=== PATIENT | female | born 1960 | race Hispanic/Latino ===

== ENCOUNTER → 2017-08-22 08:01 | Outpatient (CLI) | payer OTHER, SELFPAY ==
--- NOTE | 2017-08-22 | DI.CT.S_ITS ---
PROCEDURE: CT CHEST ABD PEL W CON INDICATIONS: Abnormal CBC and weight loss TECHNIQUE: After the administration of oral and intravenous contrast, 5 mm thick sections acquired from the lung apices to the symphysis. 5 mm coronal and sagittal reformats were performed, with additional 7 mm coronal MIP reformats through the lungs. For radiation dose reduction, the following was used: automated exposure control, adjustment of mA and/or kV according to patient size. Patient had allergic reaction to iodine contrast. See life support technician note. COMPARISON: Located Within [facility], [place], ABDOMEN COMPLETE, 01/22/2015, 11:03. FINDINGS: Image quality: Excellent. CHEST: Lungs and pleura: No acute airspace opacities. There is a pleural-based 4 mm nodule in the left lower lobe adjacent to the fissure, series 3/image 30. No pleural effusions or pneumothorax. Central and peripheral airways appear patent and normal in caliber. Mediastinum: Heart size is normal. No pericardial effusion. No mediastinal or hilar adenopathy by size criteria. Thoracic aorta and central pulmonary arteries are normal in size. Esophagus is normal in caliber. No hiatal hernia. Chest wall: No axillary or supraclavicular adenopathy by size criteria. Thyroid gland appears normal. ABDOMEN: Solid organs: Liver measures 18.9 cm with diffusely decreased attenuation, and no focal mass lesions. Gallbladder contains gallstones by previous ultrasound. Biliary system is non dilated. Pancreas enhances normally. Spleen is normal in size and enhancement. No adrenal nodules. Kidneys demonstrate normal size and enhancement, without hydronephrosis. Peritoneum and bowel: Bowel loops demonstrate normal wall thickness and caliber. The appendix is not seen. No evidence of appendicitis. No free fluid or air. Nodes and vessels: No retroperitoneal or mesenteric adenopathy by size criteria. Aorta and inferior vena cava are normal in size. Miscellaneous: No ventral hernias. PELVIS: Genitourinary: Bladder wall thickness is normal. Normal uterus and adnexa. Miscellaneous: No inguinal hernias or adenopathy. Bones: No suspicious bony lesions. No vertebral body compression fractures. IMPRESSION: 1. No acute findings in the chest abdomen or pelvis to explain weight loss. 2. Small 4 mm pleural-based nodule in the left lower lobe is indeterminant. A followup noncontrast CT chest in 6-12 months is suggested. 3. Cholelithiasis, best identified on prior abdomen ultrasound. No abnormal wall thickening to suggest cholecystitis. 4. Mild hepatomegaly and moderate steatosis, correlation with liver enzymes suggested. Dictated by: Titus Giles M.D. on 08/22/2017 at 10:26 Approved by: Titus Giles M.D. on 08/22/2017 at 10:40
== END ==
PROVIDERS: Visit Provider Internal Medicine Hematology & Oncology
DX: R63.4 Abnormal weight loss (principal); R91.1 Solitary pulmonary nodule; K80.20 Calculus of gallbladder without cholecystitis without obstruction; R16.0 Hepatomegaly, not elsewhere classified
CPT/HCPCS: 71260; 74177

== ENCOUNTER 2017-08-22 09:35 | Emergency (ER) | payer OTHER, SELFPAY ==
[2017-08-22 09:35] VITALS: BP 179/96; PULSE 48; RESP 18; TEMP 36.2; O2SAT 100; BMI 18.7
--- NOTE | 2017-08-22 09:46 | ED.ALLEREA ---
HPI - Allergic Reaction General Chief complaint: Allergic Reaction Stated complaint: Allergic Reaction Time Seen by Provider: 08/22/17 09:42 History of Present Illness HPI narrative: 57F sent from outpatient CT scan to ED for possible allergic reaction. Patient has no pmhx, getting CT abd/pelvis to investigate persistent weight loss as outpatient when she felt a sensation of globus and sinus pressure after injection of IV contrast approx 5 minutes prior. Less than 10 minutes since injection has passed, and patient states her symptoms are gone. Denies any SOB, nausea, abdominal pain, or chest pain. Has had a similar sensation many years ago with administration of penicillin. Patient recieved 50mg IV benadryl prior to transport from CT dept. Related Data Home Medications Medication Instructions Recorded Confirmed conjugated estrogens [Premarin] 1 applic VAGINAL BID 08/22/17 08/22/17 Allergies Allergy/AdvReac Type Severity Reaction Status Date / Time Iodinated Contrast- Oral and Allergy Severe Difficulty Verified 08/22/17 10:09 IV Dye Breathing Penicillins [PENICILLINS] Allergy Severe Hives Verified 08/22/17 09:48 Sulfa (Sulfonamide Allergy Verified 08/22/17 09:49 Antibiotics) Review of Systems Constitutional Denies chills, Denies fever(s), Denies lethargy and Denies weakness ENT Comments: globus sensation, now resolved. Cardiovascular Denies chest pain, Denies irregular heart rhythm, Denies lightheadedness, Denies palpitations, Denies dyspnea, Denies dyspnea on exertion and Denies orthopnea Respiratory Denies cough, Denies dyspnea, Denies dyspnea on exertion and Denies wheezing Gastrointestinal Gastrointestinal: Denies abdominal pain, Denies change in bowel habits, Denies diarrhea, Denies nausea and Denies vomiting Genitourinary Denies hematuria, Denies flank pain, Denies urinary incontinence and Denies urinary urgency Integumentary/Breasts Denies pruritus, Denies erythema, Denies rash and Denies wounds Neurologic Denies weakness Endocrine Denies palpitations Allergic/Immunologic Denies wheezing PFSH Social History Smoking Status: Never smoker Exam Initial Vital Signs Initial Vital Signs: Vital Signs Temperature 97.1 F L 08/22/17 09:35 Pulse Rate 48 L 08/22/17 09:35 Respiratory Rate 18 08/22/17 09:35 Blood Pressure 179/96 H 08/22/17 09:35 Pulse Oximetry 100 08/22/17 09:35 Const General: cooperative, healthy appearing and other (thin, but not cachectic) Orientation: alert, awake, oriented x3 and not confused [facility] Head: normocephalic and atraumatic Ears: external ears normal and TM's normal bilaterally Nose: external nose normal and No nasal discharge Face and sinus: sinuses nontender, face symmetric, no sinus tenderness and No dry mucous membranes Mouth: oral mucosae normal and moist mucous membranes Teeth and gingiva: dentition normal Throat: tonsils normal and uvula midline Neck Neck: normal visual inspection, trachea midline, No lymphadenopathy, No midline deformity and No JVD Lymphatic: No lymphedema Resp Effort & Inspection: normal respiratory effort, able to speak in complete sentences, no respiratory distress and no use of accessory muscles Auscultation: clear to auscultation bilaterally, no rales, no rhonchi and no wheezes Cardio Rate: regular rate Rhythm: regular rhythm Heart Sounds: no click, no gallops, no murmurs and no rubs Pulses: normal peripheral pulses GI Inspection: non-distended Palpation: soft, no hepatosplenomegaly, No guarding, No pulsatile mass and No tender Auscultation: normal bowel sounds Skin General: no rashes or lesions noted, No jaundice and No petechiae Neuro General: alert, oriented x3, gait normal and no focal motor deficits Speech: speech normal Extrem General: full ROM, no clubbing, cyanosis or edema, no pedal edema and no calf tenderness Course Orders Ordered: Discontinued Medications Diphenhydramine HCl (Benadryl) 50 mg IV NOW ONE Stop: 08/22/17 10:08 Last Admin: 08/22/17 10:09 Dose: 50 mg Vital Signs - 8 hr 08/22/17 09:35 08/22/17 10:00 08/22/17 10:53 Temperature 97.1 F L Pulse Rate 48 L 50 L 46 L Respiratory Rate 18 16 13 Blood Pressure 179/96 H Blood Pressure [Left Arm] 159/69 H 122/74 H Pulse Oximetry 100 100 99 08/22/17 11:10 Temperature Pulse Rate 53 L Respiratory Rate 16 Blood Pressure Blood Pressure [Left Arm] 111/55 L Pulse Oximetry 100 MDM - Allergic Reaction MDM Narrative Medical decision making narrative: Patient with globus sensation after IV contrast administration which resolved in less than 5 minutes without medications. Was given benadryl empirically prior to ED arrival. Patient was asymptomatic in ED, with unconcerning vital signs. Unlikely to be true allergic reaction. Observed in ED [address] results discussed with patient. Patient is stable for discharge. Discharge Plan Departure Patient Disposition: Home, Self-Care Clinical Impression: Globus pharyngeus Instructions: DI for General Allergic Reactions Activity Restrictions/Additional Instructions: Maintain adequate hydration. Please follow up with primary care provider. Prescriptions: No Action conjugated estrogens [Premarin] 0.625 mg/gram Cream 1 applic VAGINAL BID RF: 0
[2017-08-22 10:00] VITALS: BP 159/69; PULSE 50; RESP 16; O2SAT 100
[2017-08-22] MEDS: diphenhydrAMINE 50 MG/ML VIAL IV (10:09)
--- NOTE | 2017-08-22 10:10 | PC.NURSE ---
pt had just finished CT scan and had sx's of sneezing, coughing and throat feeling tight, asked to assist pt and I gave her 50mg of Benadryl with immediate results of reversal. pt reported her throat felt better. Pt was verbal the entire encounter and I was able to pass report off to Ann Marie RN in the ED. pt stable and reports she drove to [facility] by herself.
[2017-08-22 10:53] VITALS: BP 122/74; PULSE 46; RESP 13; O2SAT 99
[2017-08-22 11:10] VITALS: BP 111/55; PULSE 53; RESP 16; O2SAT 100
== END 2017-08-22 12:02 | disposition home or self-care (01) ==
LOC: ED 11:37
PROVIDERS: Emergency Provider Student in an Organized Health Care Education/Training Program
DX: F45.8 Other somatoform disorders (principal)
CPT/HCPCS: 96374; 99283; 99284; J1200

== ENCOUNTER → 2017-08-26 13:24 | Outpatient (CLI) | payer OTHER, SELFPAY ==
--- NOTE | 2017-08-27 14:30 | DI.NM.S_ITS ---
DATE OF SERVICE: 08/26/2017 PROCEDURE PERFORMED: Exercise treadmill stress and rest Sestamibi myocardial perfusion imaging with gating. INDICATIONS: The patient is a 57-year-old female with falls and lightheadedness with palpations. REFERRING PHYSICIAN: EDWARD Wood EXERCISE TREADMILL TESTING: The patient was able to exercise for 9 minutes 43 seconds on a standard Raghav protocol, suggesting very good exercise capacity with an ENID of negative 30%. She had a normal heart rate and blood pressure response to exercise, achieving a maximum heart rate of 141 BPM (88% of her predicted maximum). She had no chest discomfort. Her resting ECG appears normal, and there are no ST segment shifts to suggest ischemia. There were no arrhythmias. At 8 minutes 47 seconds of exercise, at a heart rate of 119 BPM, 25 mCi of technetium-99 Myoview was injected and the patient was imaged 15 minutes later, using a gated SPECT acquisition protocol. The patient returned the following day and was reinjected with an additional 26.6 mCi of technetium-99 Myoview and was imaged 35 minutes later, again using a gated SPECT acquisition protocol. FINDINGS: 1. Raw data: There is fair myocardial tracer uptake, although there is a fairly prominent area of tracer uptake in the left colon adjacent to the inferior wall that affects interpretation in this area. This is more notable on the rest images than the stress images. The lung-heart ratio is normal at 0.30. The TID ratio is normal at 1.02. 2. Quantitated gated SPECT: Post stress ejection fraction is estimated at 80% without any focal wall motion abnormality. Resting ejection fraction is 73% with an end-diastolic volume of 71 mL. 3. Myocardial perfusion imaging: Comparison is challenging between the stress and rest images because of the subdiaphragmatic tracer activity at the splenic flexure. When one attempts to normal for this hot spot there appears to be fairly normal myocardial perfusion imaging in the supine position. The prone images are of better image quality and also show a normal perfusion pattern. The resting images are more affected by the subdiaphragmatic tracer activity. Again, with attempts at normalization to other areas, there does not appear to be any significant improvement in the resting images. Given the normal perfusion pattern on the prone images, this is most likely a normal perfusion study. CONCLUSION: 1. Probable normal myocardial perfusion study, although somewhat technically limited because of a subdiaphragmatic tracer hot spot in the splenic flexure that affects the interpretation in the inferolateral segment. There can be increased tracer uptake in hypermetabolic tissue such as malignancy, and clinical correlation is recommended. 2. No compelling evidence for myocardial ischemia or previous myocardial infarction. 3. Normal LV systolic function without focal abnormality. 4. Very good exercise capacity without angina or ECG evidence of ischemia which would suggest a low risk study. Azeem Shelby - RS/bruno/kv doc#: [id number]/job#: [id number] dd: 08/27/2017 12:42:00 dt: 08/27/2017 14:21:00 DICTATING /COPIES TO: Lalo Hill MD ; EDWARD Wood COPIES MNE: TIFFANY WANG
== END ==
PROVIDERS: PCP Nurse Practitioner Family; Visit Provider Nurse Practitioner Family
DX: R00.2 Palpitations (principal); R42 Dizziness and giddiness
CPT/HCPCS: 78452; 93016; 93017; 93018; A9502

== ENCOUNTER → 2017-09-04 09:17 | Outpatient (CLI) | payer OTHER, SELFPAY ==
--- NOTE | 2017-09-04 | DI.MG.S_ITS ---
BILATERAL DIGITAL SCREENING MAMMOGRAM 3D/2D WITH CAD: 09/04/2017 CLINICAL: Routine screening. Comparison is made to exams dated: 12/07/2008 mammogram and 11/30/2008 mammogram - [facility]. There are scattered fibroglandular elements in both breasts. Current study was also evaluated with a Computer Aided Detection (CAD) system. No significant masses, calcifications, or other findings are seen in either breast. IMPRESSION: NEGATIVE There is no mammographic evidence of malignancy. A 1 year screening mammogram is recommended. This exam was interpreted at Station ID: [id number]. NOTE: For mammograms, a report in lay terms will be sent to the patient. Approximately 15% of breast malignancies will not be visualized mammographically. In the management of a palpable breast mass, a negative mammogram must not discourage biopsy of a clinically suspicious lesion. Electronically Signed By: Zander gomes/jose alejandro:09/05/2017 11:25:26 Entry: - 09/05/2017 11:25:26 letter sent: Normal Exam ACR BI-RADS Category 1: Negative [id number]
== END ==
PROVIDERS: PCP Nurse Practitioner Family; Visit Provider Nurse Practitioner Family
DX: Z12.31 Encounter for screening mammogram for malignant neoplasm of breast (principal); M81.0 Age-related osteoporosis without current pathological fracture; Z78.0 Asymptomatic menopausal state
CPT/HCPCS: 77063; 77067; 77080

== ENCOUNTER → 2018-01-08 08:38 | Outpatient (CLI) | payer OTHER, SELFPAY ==
--- NOTE | 2018-01-08 12:57 | DIET.PN ---
Met for an initial nutrition consultation. Pt reports she had gallstones in 2014; opted not to have surgery as it was not infected and changed her diet, eliminating all processed foods, white food, sugar and alcohol. Has not had any attacks since and lost approx 70# with change in diet. Is now underweight and unable to regain. Feels she has lost muscle. Wants to regain muscle; eat to avoid chronic disease, incuding dementia which her mom has. Reports osteoporosis and some arthritis pain in hands. Is a masseuse. Usual diet: 2 full meals daily with snacks between. For snacks typically eats Turkish yogurt and nuts. Main meals include meats, poultry, tofu, legumes for protein, fruit and vegs, whole grains though still avoids bread as it seems to upset stomach and results in diarrhea. Wesco tortillas, quinoa, brown rice are among chosen grains. Exercise: Swims daily. Recently started adding light weight in the pool for upper arms. Doesn't really know how much weight she's using as they are faded and numbers can't be seen. Dx: underweight, unintentional weight loss HT: 60 Weight Hx: 2014 150# Current wt: 96# BMI: 18.7 GI: Has had GI work-up and GI system appears healthy per pt. Has daily BM that is described as very soft but not watery; gets more loose with eating certain foods - bread, refined foods. Feels she has intolerance to dairy . Has cramping, diarrhea w/drinking milk, but can tolerate yogurt. Loves hard cheese but gets diarrhea w/this food. Assessment: Suspect lactose intolerance vs milk protein. Problems with cheese is likely the fat content vs dairy. May also have sensitivity to gluten per reported symptoms. Appears to have some fat intolerance. Intervention: Provided education on anti-inflammatory diet; low fat/healthful fats. Discussed supplements. Plan / Goal: Avoid lactose, high fat foods. Choose healthful fats and fats high in MCTs for easier absorption and added cals for wt increase Choose more high calcium foods (gave osteoporosis diet info) Suggest supplemental Vit D-2000IU, Fish oil omega 3's Continue exercise and adding more resistance training to help build muscle and bone. follow exercise w/snack- pro/carb combo F/U in 1mo to check progress.
== END ==
PROVIDERS: PCP Nurse Practitioner Family; Visit Provider Nurse Practitioner Family
DX: R63.6 Underweight (principal); Z68.1 Body mass index [BMI] 19.9 or less, adult
CPT/HCPCS: 97802

== ENCOUNTER 2018-05-03 11:05 | Emergency (ER) | payer OTHER, SELFPAY ==
[2018-05-03 11:18] VITALS: BP 180/85; PULSE 77; RESP 18; O2SAT 99; BMI 20.2
--- NOTE | 2018-05-03 12:09 | PC.NURSE ---
Patient noticed pain on her face on Friday, awoke on Friday with a rash on the right forehead and around the eye. Went to walk-in clinic and was diagnosed with shingles and put on antiviral therapy at this time. Her pain has not been well-managed with hydrocodone-acetaminophon. She states she has a headache and was nauseated this morning.
--- NOTE | 2018-05-03 12:23 | ED_ITS ---
HPI - Eye Problem <EDWARD Huynh - Last Filed: 05/03/18 21:28> General Chief complaint: Eye Problems Stated complaint: SENT FROM [facility] Time Seen by Provider: 05/03/18 12:23 Source: patient Mode of arrival: ambulatory Limitations: no limitations History of Present Illness HPI Narrative: 57-year-old healthy female that is a nonsmoker for complaint of pain into her right forehead area and to her right eye and face. Symptoms started approximately 3 days ago. She was seen in the walk-in clinic yesterday and was diagnosed with shingles she was put on antiviral valacyclovir and treated for pain with Weimar. She is awaiting ophthalmology appointment at this timeframe. She reports that she has had difficulty in controlling her pain. With Weimar. She denies any visual changes. Pain radiates into the right eyeball. She has redness and vesicles to the right forehead and right face area. MD chief complaint: eye pain Related Data Home Medications Medication Instructions Recorded Confirmed conjugated estrogens [Premarin] 1 applic VAGINAL BID 08/22/17 05/02/18 Previous Rx's Medication Instructions Recorded hydrocodone 5 mg-acetaminophen 325 1 tab PO Q4-6H PRN #7 tab 05/02/18 mg tablet valacyclovir 1 gram tablet 1,000 mg PO TID 7 Days #21 tab 05/02/18 erythromycin 5 mg/gram (0.5 %) eye 1 applictn OPHTHALMIC (EYE) BID 05/03/18 ointment #3.5 gram hydrocodone-acetaminophen 1 tab PO Q4-6H PRN #10 tab 05/03/18 Allergies Allergy/AdvReac Type Severity Reaction Status Date / Time Iodinated Contrast- Oral and Allergy Severe Difficulty Verified 05/03/18 11:18 IV Dye Breathing Penicillins [PENICILLINS] Allergy Severe Hives Verified 05/03/18 11:18 Sulfa (Sulfonamide Allergy Verified 05/03/18 11:18 Antibiotics) Review of Systems <EDWARD Huynh - Last Filed: 05/03/18 21:28> Constitutional Denies chills, Denies fever(s), Denies lethargy and Denies weakness Eyes Reports eye pain ENT Ears, Nose, Mouth, and Throat: Denies change in voice, Denies neck pain and Denies sore throat Comments: Rash to right forehead and face with swelling of right eyelid Cardiovascular Denies chest pain, Denies irregular heart rhythm, Denies lightheadedness, Denies palpitations, Denies dyspnea, Denies dyspnea on exertion and Denies orthopnea Respiratory Denies cough, Denies dyspnea, Denies dyspnea on exertion and Denies wheezing Gastrointestinal Gastrointestinal: Denies abdominal pain, Denies change in bowel habits, Denies diarrhea, Denies nausea and Denies vomiting Genitourinary Denies hematuria, Denies flank pain, Denies urinary incontinence and Denies urinary urgency Musculoskeletal Denies neck pain Integumentary/Breasts Denies pruritus, Denies erythema, Denies rash and Denies wounds Neurologic Denies confusion and Denies weakness Psychiatric Denies anxiety, Denies confusion, Denies depression, Denies homicidal ideation and Denies suicidal ideation Endocrine Denies palpitations Hematologic/Lymphatic Denies easy bruising Allergic/Immunologic Denies wheezing Exam <EDWARD Huynh - Last Filed: 05/03/18 21:28> Initial Vital Signs Initial Vital Signs: Vital Signs Pulse Rate 77 05/03/18 11:18 Respiratory Rate 18 05/03/18 11:18 Blood Pressure 180/85 H 05/03/18 11:18 Pulse Oximetry 99 05/03/18 11:18 Const General: cooperative and well developed Nutritional Appearance: well nourished Orientation: alert, awake, oriented x3 and not confused [facility] Head: scalp tenderness Face and sinus: other (Erythematous vesicular rash to right forehead scalp and right face) Mouth: oral mucosae normal and mucous membranes abnormal Throat: posterior oropharynx normal Eyes Eyelids: eyelid abnormality (Erythematous and swelling to right eyelids) Conjunctivae: conjunctival abnormality right conjunctival injection Cornea: corneas abnormal (Corneal lesion is appreciated to the lower right cornea on fluorescein exam) and fluorescein used Pupils: PERRL EOM: EOM intact bilaterally Resp Effort & Inspection: normal respiratory effort, able to speak in complete sentences, no respiratory distress and no use of accessory muscles Auscultation: clear to auscultation bilaterally, no rales, no rhonchi and no wheezes Cardio Rate: regular rate Rhythm: regular rhythm Heart Sounds: no click, no gallops, no murmurs and no rubs Pulses: normal peripheral pulses Neuro General: alert, oriented x3, gait normal and no focal motor deficits Speech: speech normal <Ji Silverio DO - Last Filed: 05/04/18 08:27> Initial Vital Signs Initial Vital Signs: Vital Signs Pulse Rate 77 05/03/18 11:18 Respiratory Rate 18 05/03/18 11:18 Blood Pressure 180/85 H 05/03/18 11:18 Pulse Oximetry 99 05/03/18 11:18 Course <EDWARD Huynh - Last Filed: 05/03/18 21:28> Orders Ordered: Discontinued Medications Hydrocodone Bitart/Acetaminophen (Weimar 5/325) 2 tab PO NOW ONE Stop: 05/03/18 13:22 Last Admin: 05/03/18 13:27 Dose: 2 tab Vital Signs - 8 hr 05/03/18 11:18 Pulse Rate 77 Respiratory Rate 18 Blood Pressure 180/85 H Pulse Oximetry 99 <Ji Silverio DO - Last Filed: 05/04/18 08:27> Orders Ordered: Discontinued Medications Hydrocodone Bitart/Acetaminophen (Weimar 5/325) 2 tab PO NOW ONE Stop: 05/03/18 13:22 Last Admin: 05/03/18 13:27 Dose: 2 tab Vital Signs - 8 hr 05/03/18 11:18 Pulse Rate 77 Respiratory Rate 18 Blood Pressure 180/85 H Pulse Oximetry 99 MDM - Eye Problem <EDWARD Huynh - Last Filed: 05/03/18 21:28> MDM Narrative Medical decision making narrative: Due to corneal involvement with shingles infection to r eye. Consult Ophthalmology at [facility] discussed case with Dr. Pettit ophthalmology who recommends patient be sent to [facility] emergency room for Ophthalmology evaluation today. She recommended that trifluridine drops be administered however we do not have the medication available in the pharmacy. Patient has a ride to [facility] emergency room. She is transferred to [facility] via POV. Discharge Plan Departure Patient Disposition: [facility] Clinical Impression: Herpes zoster dermatitis, Herpes zoster keratitis of right eye Discharge Date/Time: 05/03/18 13:43 Interventions: ED Discharge Assessment Last Done: 05/03/18 13:42 Activity Restrictions/Additional Instructions: Ophthalmology evaluation is needed today due to involvement of the right eye with shingles. After departure here go to [facility] emergency room for further evaluation by Ophthalmology. Care and instructions as per ophthalmology. Prescriptions: New hydrocodone-acetaminophen 5-325 mg tablet 1 tab PO Q4-6H PRN (Reason: pain) Qty: 10 RF: 0 No Action valacyclovir 1 gram tablet 1,000 mg PO TID 7 Days Qty: 21 RF: 0 hydrocodone-acetaminophen [Weimar] 5-325 mg tablet 1 tab PO Q4-6H PRN (Reason: pain) Qty: 7 RF: 0 erythromycin 5 mg/gram (0.5 %) ointment 1 applictn ophthalmic (eye) BID Qty: 3.5 RF: 3 conjugated estrogens [Premarin] 0.625 mg/gram Cream 1 applic VAGINAL BID RF: 0 Referrals: Lucina Duran ARNP [Primary Care Provider] - <Ji Silverio DO - Last Filed: 05/04/18 08:27> Cosign ED Attending Marijaature Attestation: I was available for consultation during this patient's emergency department encounter
[2018-05-03] MEDS: HYDROCODONE/ACET 5/325 TABLET 2 TAB PO (13:27)
== END 2018-05-03 13:43 | disposition short-term general hospital (02) ==
PROVIDERS: Emergency Provider Nurse Practitioner Family; PCP Nurse Practitioner Family
DX: B02.8 Zoster with other complications (principal); L30.8 Other specified dermatitis; B02.33 Zoster keratitis
CPT/HCPCS: 99283

== ENCOUNTER → 2020-10-03 14:05 | Outpatient (CLI) | payer OTHER, SELFPAY | PROVIDERS: PCP Internal Medicine; Referring Provider Internal Medicine; Visit Provider Internal Medicine | DX: M81.0 Age-related osteoporosis without current pathological fracture (principal); Z78.0 Asymptomatic menopausal state | CPT/HCPCS: 77080; 77081 ==

== ENCOUNTER → 2022-05-03 12:17 | Outpatient (CLI) | payer OTHER, SELFPAY ==
--- NOTE | 2022-05-03 12:19 | DI.MG.S_ITS ---
BILATERAL DIGITAL SCREENING MAMMOGRAM 3D/2D WITH CAD: 05/03/2022 CLINICAL: Routine screening. Family history of breast cancer. Comparison is made to exams dated: 09/04/2017 mammogram, 12/07/2008 mammogram, and 11/30/2008 mammogram - [facility]. There are scattered areas of fibroglandular density in both breasts (category b / 25%-50% glandular tissue). Current study was also evaluated with a Computer Aided Detection (CAD) system. There are benign vascular calcifications in both breasts. No significant masses, calcifications, or other findings are seen in either breast. There has been no significant interval change. IMPRESSION: BENIGN There is no mammographic evidence of malignancy. A 1 year screening mammogram is recommended. Based on the Tyrer Cuzick model (a risk assessment model) the patient's lifetime risk is 5.2% and her 10 year risk is 2.3%. According to the ACR, ACS, and NCCN guidelines, an annual breast MRI exam along with mammogram is recommended if the patient's lifetime risk is 20% or greater. This exam was interpreted at Station ID: [id number]. NOTE: For mammograms, a report in lay terms will be sent to the patient. Approximately 15% of breast malignancies will not be visualized mammographically. In the management of a palpable breast mass, a negative mammogram must not discourage biopsy of a clinically suspicious lesion. Electronically Signed By: Yanna salazar/jose alejandro:05/03/2022 16:10:24 letter sent: Normal Exam ACR BI-RADS Category 2: Benign Finding(s) [id number]
== END ==
PROVIDERS: PCP Internal Medicine; Referring Provider Internal Medicine; Visit Provider Internal Medicine
DX: Z12.31 Encounter for screening mammogram for malignant neoplasm of breast (principal); Z80.3 Family history of malignant neoplasm of breast; M81.0 Age-related osteoporosis without current pathological fracture; Z78.0 Asymptomatic menopausal state
CPT/HCPCS: 77063; 77067; 77080

== ENCOUNTER → 2024-02-04 12:38 | Outpatient (CLI) | payer OTHER, SELFPAY ==
--- NOTE | 2024-02-04 12:42 | DI.MRI.S_ITS ---
PROCEDURE: MR HEAD/BRAIN WO/W CON INDICATIONS: Right SIDED HEADACHE TECHNIQUE: Noncontrast axial T1 spin echo, axial T2 fast spin echo, sagittal and axial FLAIR, coronal T2 fast spin echo, axial gradient echo, axial diffusion and ADC through the brain. After the administration of contrast, axial and coronal and sagittal 3D VIBE or T1 spin echo with fat saturation through the brain. COMPARISON: None. FINDINGS: Image quality: Excellent. CSF Spaces: Basal cisterns are patent. No extra-axial fluid collections. Ventricles are normal in size and shape. Brain: No midline shift. No intracranial bleeds or masses. No abnormal intracranial enhancement. The brainstem appears normal. Diffusion-weighted images demonstrate no acute infarct. No chronic ischemic insults. Normal intravascular flow voids are present. Minimal scattered periventricular and subcortical white matter hyperintensities. Skull and face: Calvarial marrow is normal in signal. Orbits appear normal. Sinuses: Sinuses and mastoids appear clear. IMPRESSION: 1. No acute intracranial process. 2. Minimal scattered periventricular and subcortical white matter hyperintensities. These likely represent early changes of chronic microvascular ischemia. However, other etiology such as migraine sequela, vasculitis or potentially demyelinating disease under appropriate clinical laboratory circumstances should be considered. Dictated by: Darshana Bonilla M.D. on 02/06/2024 at 16:02 Approved by: Darshana Bonilla M.D. on 02/06/2024 at 16:04
== END ==
PROVIDERS: PCP Internal Medicine; Referring Provider Internal Medicine; Visit Provider Internal Medicine
DX: R51.9 Headache, unspecified (principal); G89.29 Other chronic pain
CPT/HCPCS: 70553; A9579

== ENCOUNTER → 2024-08-27 10:35 | Outpatient (CLI) | payer OTHER, SELFPAY ==
--- NOTE | 2024-08-27 10:38 | DI.MG.S_ITS ---
MM screening mammo BI: 08/27/2024. BI-RADS: 2 CLINICAL: 64-year old female for bilateral screening mammogram. Tyrer-Cuzick lifetime risk of 3.0%. No personal or first-degree family history of breast cancer. PRIOR EXAMS 05/03/2022, 09/04/2017. MAMMOGRAPHY TECHNIQUE: 2D and 3D (tomosynthesis) digital mammographic views obtained, with additional images as needed for full coverage. Current study was also evaluated with a Computer Aided Detection (CAD) system. DENSITY C. The breasts are heterogeneously dense, which may obscure small masses. MAMMOGRAPHY FINDINGS Bilateral: Typically-benign vascular calcifications noted. IMPRESSION: * No evidence of malignancy with benign findings. RECOMMENDATIONS Bilateral * Annual screening mammography. OVERALL ASSESSMENT CATEGORY BI-RADS-2: Benign. The [employer] recommends annual screening mammography beginning at age 40 for women with average risk of breast cancer. ELECTRONICALLY SIGNED: Anmol Olivares M.D. on 08/27/2024 at 01:37:38 PM PT Interpreting Station ID: [id number]
--- NOTE | 2024-08-27 10:38 | DI.RAD.S_ITS ---
PROCEDURE: XR DEXA AXIAL SKELETON INDICATIONS: SCREENING COMPARISON: [facility], CR, XR DEXA AXIAL SKELETON, 05/03/2022, 12:52. FINDINGS: Lumbar Spine L1, L2, and L4: Bone mineral density 0.715 g/cm2, T score -2.9, osteoporosis, change from previous 1.5%. Left Femoral Neck: Bone mineral density 0.550 g/cm2, T score -2.7, osteoporosis. Left Hip: Bone mineral density 0.688 g/cm2, T score -2.1, osteopenia, change from previous-0.5%. Fracture Risk Calculation (when applicable): 10-year fracture risk of a major osteoporotic fracture 22 percent and of a hip fracture 3.9 percent. This FRAX score is not valid because one or more T-scores are below-2.5. (T score greater or equal to -1.0 to: NORMAL) (T score from -1.1 to -2.4: OSTEOPENIA) (T score less than or equal to -2.5: OSTEOPOROSIS) IMPRESSION: Osteoporosis. The patient is at a high risk of fracture. No significant change compared to prior. Follow-up guidelines as follows: Osteoporosis: Consider a repeat DEXA and Vertebral Fracture Assessment (VFA) exam in 2 years or sooner if medically necessary, to reassess this patient's status. Osteopenia: Consider a repeat DEXA in 2-3 years to reassess this patient's status, or if there is a new clinical indication. Normal: Consider a repeat DEXA in 5 years or sooner, or if there is a new clinical indication. All treatment decisions require clinical judgment and consideration of individual patient factors, including patient preferences, comorbidities, previous drug use, risk factors not captured in the FRAX model (e.g., frailty, falls, vitamin D deficiency, increased bone turnover, interval significant decline in bone density ) and possible under- or over-estimation of fracture risk by FRAX. In addition, the NOF Guide recommends that FDA-approved medical therapies be considered in postmenopausal women and men age >= 50 years with a: * Hip or vertebral (clinical or morphometric) fracture * T-score of <=-2.5 at the spine or hip * Ten-year fracture probability by FRAX of >= 3% for hip fracture or >=20% for major osteoporotic fracture. Dictated by: Brittani Rodgers M.D. on 08/27/2024 at 16:15 Approved by: Brittani Rodgers M.D. on 08/27/2024 at 16:17
== END ==
LOC: RAD 10:36
PROVIDERS: PCP Internal Medicine; Referring Provider Internal Medicine; Visit Provider Registered Nurse
DX: Z12.31 Encounter for screening mammogram for malignant neoplasm of breast (principal); R92.333 Mammographic heterogeneous density, bilateral breasts; M81.0 Age-related osteoporosis without current pathological fracture; Z78.0 Asymptomatic menopausal state
CPT/HCPCS: 77063; 77067; 77080